=== PATIENT | male | born 1950 | race Caucasian/White ===

== ENCOUNTER 2023-10-20 22:44 | Emergency (ER) | payer MEDICARE, SELFPAY ==
[2023-10-20 22:48] VITALS: BP 160/88; PULSE 77; RESP 16; TEMP 36.7; O2SAT 95; BMI 31.5
--- NOTE | 2023-10-20 23:42 | W.ED.MALEGU ---
HPI - Male Genitourinary General: Chief complaint: Urogenital-Male Stated complaint: Can not pee Time Seen by Provider: 10/20/23 23:34 Source: patient Mode of arrival: ambulatory Limitations: no limitations History of Present Illness: Patient is a 73-year-old male with past medical history of prostate cancer who presents the emergency department complaining of lower abdominal pain for the past day. Patient also notes he is voided very little over this time, and believes that this is causing his pain. He states that his prostate cancer is monitored routinely twice a year, and this has been normal and in remission. He does see urology and states he is currently on medication that causes urinary retention. He denies any dysuria, blood in his urine, or any other symptoms at this time. MD Complaint: other (Urinary retention/lower abdominal pain) Onset (ago): day(s) Duration: constant Context: new medication Associated symptoms: Deny dysuria, hematuria, nausea or vomiting Review of Systems General: Reports: 10 or more systems reviewed and unremarkable except in HPI and below Const: Denies: fever(s), chills, change in appetite, change in weight or diaphoresis ENMT: Denies: throat pain or hoarseness Card: Denies: chest pain, palpitations or lightheadedness Resp: Denies: dyspnea, productive cough or wheezing GI: Reports: abdominal pain; Denies: nausea, vomiting, diarrhea, constipation, bloating, change in stool character or hematochezia : Reports: difficulty urinating, urinary dribbling and oliguria; Denies: flank pain, dysuria or hematuria Musc: Denies: neck pain or back pain Skin/Breast: Denies: rash or new lesions Neuro: Denies: headache(s) or dizziness Physical Exam Const: COMMON NORMALS: no acute distress, average body habitus, patient oriented x3, no limitations, healthy appearing, alert and well nourished GENERAL APPEARANCE: cooperative and comfortable ORIENTATION/CONSCIOUSNESS: Yes awake HENMT: COMMON NORMALS: normocephalic, atraumatic, hearing grossly normal bilaterally, external ears normal, Normal external nose present, Normal nasal mucous membranes and turbinates present and moist oral mucous membranes HEAD & SCALP: normocephalic and atraumatic NOSE: Normal external nose present and Normal nasal mucous membranes and turbinates present EXTERNAL EAR: Yes external ears normal Eye: COMMON NORMALS: Equal, round and reactive pupils present, EOMs intact bilaterally, conjunctivae normal and normal visual baird by confrontation CONJUNCTIVA: Yes conjunctivae normal PUPIL: Yes Equal, round and reactive pupils present Neck/C-Spine: COMMON NORMALS: full ROM, supple, no meningeal signs and no JVD Resp: COMMON NORMALS: normal respiratory effort, No retractions, No use of accessory muscles and clear to auscultation bilaterally AUSCULTATION: clear to auscultation bilaterally, no crackles, no rales, no rhonchi and no wheezes Cardio: COMMON NORMALS: no JVD, regular rate, regular rhythm, S1 normal heart sound present, S2 normal heart sound present, No gallops present (Cardio), No clicks present (Cardio), No murmurs present (Cardio), No rub (Cardio) and Peripheral pulses 2+ throughout RATE: regular rate RHYTHM: regular rhythm HEART SOUNDS: S1 normal heart sound present and S2 normal heart sound present PERIPHERAL PULSES: Peripheral pulses 2+ throughout GI: COMMON NORMALS: Normal to inspection, nondistended, normoactive bowel sounds present, Soft to palpation, No hepatosplenomegaly present and no masses INSPECTION: Yes abdominal distension (Mild, suprapubic) AUSCULTATION: Yes normoactive bowel sounds PALPATION: Yes Soft to palpation, Yes Tenderness to palpation present (GI) (Suprapubic), No Guarding due to palpation present (GI), No Rigid due to palpation and Yes No hepatosplenomegaly present RECTAL EXAM: Yes deferred Extremity: COMMON NORMALS: normal to inspection and full ROM Neuro: COMMON NORMALS: patient oriented x3, moves all extremities, no focal motor deficits and no sensory deficits noted SENSORIUM/ORIENTATION: Yes alert MENINGEAL SIGNS: Yes no meningeal signs Psych: COMMON NORMALS: mental status grossly normal, cooperative and speech normal SPEECH: Yes normal speech Skin: COMMON NORMALS: no rashes or lesions noted GENERAL SKIN EXAM: no rashes or lesions noted Course Vital Signs: Vital signs: Vital Signs Temperature 98.0 F 10/20/23 22:48 Pulse Rate 77 10/20/23 22:48 Respiratory Rate 16 10/20/23 22:48 Blood Pressure 160/88 10/20/23 22:48 Pulse Oximetry 95 10/20/23 22:48 Oxygen Delivery Me thod Room Air 10/20/23 22:48 MDM - Male Medical Decision Making Patient presented with lower abdominal pain, coinciding with essentially no urinary output over the past day. Has history of prostate cancer, though this is in remission and followed up by urology. He is on a medication, reportedly a trial medication, for causing less urine output. A Street is placed at bedside and drained approximately 2 L of urine, and he reports immediate relief of his pain. Due to this medication and relief of pain with catheterization, likely this was the source of his pain and he is to call his urologist tomorrow to schedule an appointment and stop the medication he is taking. He is reexamined after catheterization and this does result in less tender to palpation and less distention. He will call tomorrow as scheduled and strict return precautions were given otherwise. Dr. Serrano is made aware of this patient's case and current findings. No radiology studies performed this visit Discharge Plan Discharge Patient Disposition: Home Clinical Impression: Acute retention of urine Condition: Stable Discharge Orders: Discharge ED (Routine); Ordered 10/20/23 Ordered By: Jose Gtz Discharge Diet: Usual diet Discharge Activity: Increase activity as tolerated Patient Instructions: Urinary Retention in Men (ED) Activity Restrictions/Additional Instructions: Stop taking urinary retention medication as discussed. Please call your urologist tomorrow to schedule an appointment. Monitor for any new or worsening symptoms you may have and return for reevaluation otherwise. Coding Level of Care Code ED Revenue Stamper for Vielka Garcia
== END 2023-10-20 23:54 | disposition home or self-care (01) ==
PROVIDERS: Emergency Provider Physician Assistant
DX: R33.9 Retention of urine, unspecified (principal)
CPT/HCPCS: 51702; 99283